=== PATIENT | male | born 1975 | race Caucasian/White ===

== ENCOUNTER 2021-12-28 14:25 | Emergency (ER) | payer BC ==
[~2021-12-28] VITALS: Ht 185.4 cm; Wt 87.7 kg
[2021-12-28 14:26] VITALS: BP 137/70
[2021-12-28] MEDS ORDERED: KEPP500T13 PO (15:12)
[2021-12-28] MEDS ORDERED: LAMI50TA PO (15:12)
[2021-12-28] MEDS ORDERED: BOOSTRIX/ADACEL VACCINE (DIPHTH/PERTUSS/ACELL/TETANUS) 0.5ML SYR IM ONE (18:30)
[2021-12-28] MEDS ORDERED: LIDOCAINE 2% MDV 20ML VIAL SC ONE (18:30)
== END 2021-12-28 19:27 | disposition home or self-care (01) ==
LOC: M ED 14:25
DX: S61.215A Laceration without foreign body of left ring finger without damage to nail, initial encounter (principal); W23.0XXA Caught, crushed, jammed, or pinched between moving objects, initial encounter; Z23 Encounter for immunization